=== PATIENT | female | born 1970 | race Caucasian/White ===

== ENCOUNTER 2019-12-29 06:40 | Day surgery (SDC) | payer BC ==
[~2019-12-29 06:40] MED LIST: Buffered Lidocaine 1% SYRIN* 1 ML/SYRINGE INTRADERM ONE; Dexamethasone IV* 4 MG/ML 1 ML (4 MG) IV SLOW PU ONE; Famotidine IV* 10 MG/ML 2 ML (20 mg) IV ONE; Lactated Ringers 1000 ML Bag* 1,000 ML IV SCH
[2019-12-29] MEDS ORDERED: Famotidine IV* 10 MG/ML 2 ML (20 mg) ONE (07:20)
[2019-12-29] MEDS ORDERED: Dexamethasone IV* 4 MG/ML 1 ML (4 MG) ONE (07:20)
[2019-12-29] MEDS ORDERED: Ondansetron INJ* 2 MG/ML VIAL IV PRN (08:38)
[2019-12-29] MEDS ORDERED: fentaNYL* 50 MCG/ML 2 ML VIAL (100 MCG VIAL) IV PRN (08:38)
[2019-12-29] MEDS ORDERED: oxyCODONE/Acetamin 5/325 MG* TAB PO PRN (08:38)
[2019-12-29] MEDS ORDERED: DiMENhydriNATE IV* 50 MG/ML VIAL IV PUSH PRN (08:38)
[2019-12-29] MEDS ORDERED: Naloxone* 0.4 MG/ML 1 ML VIAL IV PRN (08:38)
[2019-12-29] MEDS ORDERED: fentaNYL* 50 MCG/ML 5 ML VIAL (250 MCG VIAL) ONE (08:42)
[2019-12-29] MEDS ORDERED: Midazolam* 1 MG/ML 5 ML VIAL (5 MG) ONE (08:42)
[2019-12-29] MEDS ORDERED: Propofol* 10 MG/ML 20 ML BTL ONE (08:44)
[2019-12-29] MEDS ORDERED: Ondansetron INJ* 2 MG/ML VIAL ONE (08:44)
[2019-12-29] MEDS ORDERED: Ketorolac INJ* 30 MG/ML 1 ML VIAL ONE (08:44)
[2019-12-29] MEDS ORDERED: Lidocaine 2% PF * 5 ML VIAL ONE (08:58)
[2019-12-29] MEDS ORDERED: Glycopyrrolate IV* 0.2 MG/ML 1 ML VIAL ONE (09:23)
[2019-12-29] MEDS ORDERED: Ibuprofen TAB* 600 MG PO PRN (09:45)
[2019-12-29 10:33] VITALS: BP 105/75
--- NOTE | 2019-12-29 23:39 | OP ---
DATE OF OPERATION: 12/29/19 [facility] DATE OF : 66 SURGEON: Wanda Robledo MD ANESTHESIOLOGIST: Dr. Shaw. ANESTHESIA: General endotracheal anesthesia. PRE-OP DIAGNOSES: 1. Irregular vaginal bleeding. 2. Polyp on ultrasound. 3. Fibroids on ultrasound. POST-OP DIAGNOSES: 1. Irregular vaginal bleeding. 2. Polyp on ultrasound. 3. Fibroids on ultrasound. OPERATIVE PROCEDURE: Dilation, hysteroscopy and curettage. ESTIMATED BLOOD LOSS: Minimal. Less than 20 cc. SPECIMENS: Endometrial curettings. FLUIDS: Per anesthesia. MYOSURE DEFICIT: 150 cc. FINDINGS: Midline cervix. There was a grade 2 uterine cervical prolapse with complete relaxation, no adnexal masses palpated, small mobile uterus, no polyps or intracavitary fibroids were seen. Both tubal ostia were visualized. The endometrium appeared atrophic. COMPLICATIONS: None. COUNTS: Sponge, lap and needle count were correct x2. CONDITION: The patient was brought to the recovery room awake and in stable condition. DESCRIPTION OF PROCEDURE: The patient was brought to the operating room where general anesthesia was found to be adequate. The patient was prepped and draped in the usual sterile fashion in the dorsal lithotomy position. A time- out was performed. Exam under anesthesia was performed with the above findings noted. A weighted speculum was placed in the vagina. The anterior lip of the cervix was grasped with a single tooth tenaculum and the cervix was gently and easily dilated with Hegar dilators to a size 9. The uterus sounded to 7.5. Both tubal ostia were visualized. No endometrial polyps were seen. No intracavitary fibroids were seen. No endocervical polyps were seen. The hysteroscope was removed. Curettage was performed. Endometrial curettings were sent to Pathology. The single tooth tenaculum was removed from the cervix. At the site of the right side of the tenaculum, there was some oozing, pressure was held with a polyp forceps, excellent hemostasis was achieved and the patient was brought to the recovery room awake and in stable condition. [id number]/CPS #: [id number] MTDD
== END 2019-12-29 11:05 | disposition home or self-care (01) ==
LOC: OR 06:40
PROVIDERS: ATTEND Obstetrics & Gynecology
DX: N93.8 Other specified abnormal uterine and vaginal bleeding (principal); N84.0 Polyp of corpus uteri; D25.9 Leiomyoma of uterus, unspecified; N81.11 Cystocele, midline
CPT/HCPCS: 81025; 88305; J1100; J1885; J2250; J2405; J2704; J3010